=== PATIENT | female | born 2000 | race Caucasian/White ===

== ENCOUNTER 2021-02-12 14:47 | Emergency (ER) | payer OTHER ==
[~2021-02-12] VITALS: Ht 160 cm; Wt 87.1 kg
--- OUTSIDE RECORDS SUMMARY | 2021-02-12 17:34 | XMS ---
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 Brooks has no Care Guidelines for this patient. Alexei V[facility] (12 MO.) [facility] T[facility] 2 NOTE: Visits indicate total known visits. ED/C VISIT TRACKING (12 MO.) 02[facility]12[facility]2021 14[facility] COMPLAINT: - VAGINAL BLEEDING 01/24/2021 13:23 [facility] DIAGNOSES: - Urinary Complaint - Diffficuly urinating - Acute cystitis without hematuria - Less than 8 weeks gestation of INPATIENT VISIT TRACKING (12 MO.) No inpatient visits to display in this time frame [email or web address]
== END 2021-02-12 17:58 | disposition home or self-care (01) ==
LOC: ED 14:47
DX: O20.0 Threatened abortion (principal); Z88.2 Allergy status to sulfonamides; Z3A.01 Less than 8 weeks gestation of pregnancy
CPT/HCPCS: 76801; 76817; 81001; 84702; 85025; 86900; 99284-25

== ENCOUNTER 2021-02-13 16:15 | Emergency (ER) | payer OTHER ==
[~2021-02-13] VITALS: Ht 160 cm; Wt 87.1 kg
--- OUTSIDE RECORDS SUMMARY | 2021-02-13 16:22 | XMS ---
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 Brooks has no Care Guidelines for this patient. Alexei [facility] (12 MO.) [facility] TOTAL 3 NOTE: Visits indicate total known visits. ED/C VISIT TRACKING (12 MO.) 02[facility]13[facility]2021 16:[facility] COMPLAINT: - VAGINAL BLEEDING/CLOTTING 02/12/2021 14:[address] [facility] [place] TYPE: Emergency COMPLAINT: - VAGINAL BLEEDING 01/24/2021 13:23 [facility] TYPE: Emergency DIAGNOSES: - Urinary Complaint - Diffficuly urinating - Acute cystitis without hematuria - Less than 8 weeks gestation of INPATIENT VISIT TRACKING (12 MO.) No inpatient visits to display in this time frame [email or web address]
== END 2021-02-13 20:55 | disposition home or self-care (01) ==
LOC: ED 16:15
DX: O20.0 Threatened abortion (principal); Z3A.01 Less than 8 weeks gestation of pregnancy; Z88.2 Allergy status to sulfonamides
CPT/HCPCS: 84702; 99284